=== PATIENT | male | born 2000 | race Caucasian/White ===

== ENCOUNTER 2018-12-12 15:34 | Emergency (ER) | payer SELFPAY ==
[~2018-12-12] VITALS: Ht 172.7 cm; Wt 86.8 kg
[2018-12-12] MEDS ORDERED: TETRACAINE 0.5% OPHTH SOLN 4ML OS ONE (16:15)
[2018-12-12] MEDS ORDERED: FLUORESCEIN OPHTH 1 MG STRIP OS ONE (16:15)
[2018-12-12] MEDS ORDERED: ACETAMINOPHEN 325 MG TAB PO ONE (17:00)
[2018-12-12] MEDS ORDERED: ERYTHROMYCIN OPHTH OINT OS ONE (17:00)
[2018-12-12] MEDS ORDERED: OXYCODONE/APAP 5MG/325MG(BULK FOR ED) 1 TABLET PO ONE (17:15)
[2018-12-12 17:30] VITALS: BP 131/76
== END 2018-12-12 17:37 | disposition home or self-care (01) ==
LOC: M ED 15:34
DX: H18.892 Other specified disorders of cornea, left eye (principal); Z72.0 Tobacco use